=== PATIENT | male | born 1990 | race Caucasian/White ===

== ENCOUNTER 2023-12-04 15:30 | Outpatient (RCR) | payer BC, SELFPAY ==
--- NOTE | 2023-11-29 08:44 | HP.PTEVAL_ITS ---
Patient's Visit Information Visit Information Visit Information: JAGDISH HOLGUIN is a 33 year old M referred to Physical Therapy by Dr. Karan Salas MD with a diagnosis of L sided sciatica. Date of Evaluation: 11/29/23 Physical Therapist: Clyde Garcia DPT Visit Plan Frequency: 1x/Week Duration: 6 Weeks Plan: Start with extension progression in prone standing for work. Once symptoms have abolished add in neutral spine core stability and lifting mechanics to reduce stress to lumbar spine with all lifting at work. Subjective Subjective: Pt. is here today for his initial evaluation with diagnosis of left sided sciatica. Pt. reports having pain for 4 weeks now. No mech of injury. Pt. reports doing a lot of lifting at work the previous day and woke up the next with very intense pain. He reports increased pain from his back that extends down his L leg just past his knee at times. Mornings are the worst. Pain does improve as the day goes on. He has difficulty bending fwrd, this does increase his symptoms. Pt. denies N/T in either LE. No myotomal weakness noted. No changes in B/B noted. Pt. reports taking a steroid that helped, but is no off them. He biggest issues are with bending fwrd, prolonged sitting and early mornings. Pt. would like to reduce symptoms in order to get back to all work and recreational activities without limitations. Pain Lumbar spine: Pain Intensity (Out of 10): 5 Pain Intensity Range: 2 and 7 L LE: Pain Intensity (Out of 10): 0 Pain Intensity Range: 0 and 6 Comment: a little past his knee Objective Objective: POSTURE: Pt. has slight flexed posture in stance. No lateral shift noted. PALPATION: Pt. has slight pain with spring testing at L3-L5. Mild hypomobility noted. NEURO: normal sensation and normal DTR noted in BLEs. ROM: Pt. has normal hip ROM bilaterally. LUMBAR SPINE: flexion mod/max loss increase NW, ext min/mod loss decrease NB, SB nil loss bilat NE, rotation nil loss NE bilat. PT. has some mild HS tightness as well. MMT: Pt. has full strength in BLEs. GAIT: normal, slight reduced step length, but otherwise normal. Special Tests L/S Slump test left side: Positive L/S Slump test right side: Negative L/S Left Straight Leg Raise: Positive L/S Right Straight Leg Raise: Negative Lumbar Standing: Flexion - Mechanical Response: No effect Lumbar Standing: Flexion - Symptoms During Testing: Increases Lumbar Standing: Flexion - Symptoms After Testing: No worse Lumbar Standing: Extension - Mechanical Response: No effect Lumbar Standing: Extension - Symptoms During Testing: Decreases Lumbar Standing: Extension - Symptoms After Testing: No better Lumbar Standing: Right Side Glides - Mechanical Response: No effect Lumbar Standing: Right Side [place] - Symptoms During Testing: No effect Lumbar Standing: Right Side [place] - Symptoms After Testing: No effect Lumbar Standing: Left Side [place] - Mechanical Response: No effect Lumbar Standing: Left Side [place] - Symptoms During Testing: No effect Lumbar Standing: Left Side [place] - Symptoms After Testing: No effect Lumbar Lying: Extension - Mechanical Response: No effect Lumbar Lying: Extension - Symptoms During Testing: Abolishes Lumbar Lying: Extension - Symptoms After Testing: Better Balance/Special Test Scores Oswestry Low Back Score: 12 Goals Goal 1:: LTG: Pt. to be I with HEP. Goal Time Frame: 4-6 Weeks Goal 2:: STG: Pt. to have radicular symptoms abolished Goal Time Frame: 2-4 Weeks Goal 3:: LTG: Pt to reports no back or L leg pain with all work and recreational activities. Goal Time Frame: 4-6 Weeks Goal 4:: LTG: pt. to have full lumbar ROM without increase in symptoms. Goal Time Frame: 4-6 Weeks Rehabilitation Potential Physical Therapy Diagnosis: Pt. has signs and symptoms consistent with L sided sciatica. Pt. has reduction in symptoms with extension progression. Pt. would benefit from PT to address his radicular symptoms progressing with extension then progress to neutral spine core stability to reduce risk for future injuries. Rehabilitation Potential: Excellent Anticipated Interventions Patient/Client Instruction: Educate patient on: Condition, Plan of Care, Risk Factors and Benefits of Fitness Program For the Purpose of:: To facilitate caregiver knowledge, To improve self management, To prevent re-injury, To improve ability to perform tasks related to life management and To improve tolerance to ADL's Therapeutic Exercise to Include: Strength training, Power training, Dynamic Lumbar Stabilization and June Exercises For the Purpose of:: To decrease pain, To decrease swelling/inflammation, To increase ROM, To improve nutrient delivery to tissue, To increase oxygenation perfusion, To decrease soft tissue restriction and To increase flexibility/ROM Text: Thank you for the opportunity to evaluate your patient. For Medicare and Medicare HMO plans, please review the plan of care and approve it. It will need to be FAXED BACK to us at [phone] for Medicare purposes. For Medicare only, by signing this I certify the plan of care. Please let me know if there are questions or concerns regarding this plan of care. Physician Signature: Date:
== END 2023-12-04 19:00 | disposition home or self-care (01) ==
LOC: PT 15:30
DX: M54.42 Lumbago with sciatica, left side (principal)
CPT/HCPCS: 97110; 97161